=== PATIENT | female | born 1965 | race Caucasian/White ===

== ENCOUNTER 2021-06-16 16:59 | Outpatient (CLI) | payer OTHER, SELFPAY ==
--- NOTE | ~2021-06-16 | US_ITS ---
EXAMINATION: US venous doppler [facility] DATE: 06/16/2021 17:43 INDICATION: Lower limb edema. TECHNIQUE: Grayscale ultrasound images without and with compression and Doppler ultrasound images of the bilateral lower extremity veins were obtained. COMPARISON: None. FINDINGS: The visualized portions of right common femoral vein, profunda (deep) femoral vein, femoral vein, pop liteal vein, peroneal veins, posterior tibial veins, and greater saphenous vein outflow are patent. The visualized portions of left common femoral vein, profunda femoral vein, femoral vein, popliteal v ein, peroneal veins, posterior tibial veins, and greater saphenous vein outflow are patent. IMPRESSION: 1. No deep venous thrombosis. Reviewed, dictated and finalized at location A.
== END 2021-06-16 17:00 | disposition home or self-care (01) ==
LOC: ANHIMG 17:01
PROVIDERS: PCP Internal Medicine; Visit Provider Internal Medicine
DX: R60.9 Edema, unspecified (principal)
CPT/HCPCS: 93970

== ENCOUNTER → 2022-01-16 15:40 | Outpatient (CLI) | payer OTHER, SELFPAY ==
--- NOTE | ~2022-01-16 | XR_ITS ---
EXAMINATION: XR lumbar spine 2-3V DATE: 01/16/2022 16:02 INDICATION: Low back pain TECHNIQUE: Supine anteroposterior and lateral views of the lumbar spine, and cone-down lateral view o f the lumbosacral junction were obtained. COMPARISON: None. FINDINGS: Alignment is normal. Vertebral body heights are normal. Mild disc height loss at T10-T11 through L2-L 3 and mild to moderate disc height loss at L3-L4. Mild to moderate lower lumbar facet osteoarthritis. Sacrum and bilateral sacroiliac joints are normal. IMPRESSION: 1. Mild lower thoracic and mild to moderate lumbar spondylosis. Reviewed, dictated and finalized at location A. [employer]
== END ==
PROVIDERS: PCP Internal Medicine; Visit Provider Internal Medicine
DX: M54.50 Low back pain, unspecified (principal); M47.894 Other spondylosis, thoracic region; M47.896 Other spondylosis, lumbar region
CPT/HCPCS: 72100

== ENCOUNTER 2022-03-29 07:57 | Outpatient (CLI) | payer OTHER, SELFPAY ==
[2022-03-29 08:53] LABS: Anion Gap 5 mmol/L (8-16); Blood Urea Nitrogen 13 mg/dL (7-17); Calcium 9.9 mg/dL (8.4-10.2); Carbon Dioxide 30 mmol/L (22-30); Chloride 104 mmol/L (98-107); Estimated Glomerular Filt Rate > 60; Glucose 136 mg/dL (65-110); Potassium 4.1 mmol/L (3.4-5.0); Sodium 139 mmol/L (137-145)
== END 2022-03-29 07:58 | disposition home or self-care (01) ==
LOC: ANHSURGERY 08:03
PROVIDERS: PCP Internal Medicine; Visit Provider Urology
DX: Z01.818 Encounter for other preprocedural examination (principal); I10 Essential (primary) hypertension; N36.42 Intrinsic sphincter deficiency (ISD)
CPT/HCPCS: 36415; 80048; 87086; 87088

== ENCOUNTER 2022-03-31 01:08 | Day surgery (SDC) | payer OTHER, SELFPAY ==
--- NOTE | 2022-03-25 11:59 | PM.IMHP ---
H&P: HPI History of Present Illness Date/Time: 03/25/22 11:59 56 yo with SELVIN due to ISD Chief Complaint: ISD Review of Systems Review of Systems: All systems reviewed & are unremarkable except as noted in HPI and below PMFSH Past Medical History Medical History History of vaginal delivery Hypertension Migraines Surgical History Surgical History H/O total hysterectomy 2017 [place] teeth removed Family History Family History Mother Hypertension Family history of malignant neoplasm of breast in first degree relative Father Hypertension Other Carcinoma of colon Cerebrovascular accident Social History Social History Smoking status: Never smoker Alcohol intake: current Meds Home Medications and Allergies Home Medications Medication Instructions Recorded Confirmed Type amlodipine 10 mg-benazepril 40 mg 1 cap PO DAILY 03/25/21 03/25/21 History capsule Allergies Allergy/AdvReac Type Severity Reaction Status Date / Time No Known Allergies Allergy Verified 03/25/21 13:37 Exam Narrative: NAD A+O x3 normal breathing no mesh exposure Assessment and Plan Assessment and plan (1) Intrinsic sphincter deficiency (ISD): Code(s): N36.42 - Intrinsic sphincter deficiency (ISD) Status: Acute Assessment and Plan: cystoscopy/bulking agent
--- NOTE | 2022-03-28 14:27 | PC.NURSE ---
Report to the Outpatient Waiting Room, entrance under the green pavilion located off [facility], at time _0830 on date _03/31/22 . OR Time: 1030 . - You and your visitor will be asked a series of questions to screen for COVID 19 for your protection. - Only one visitor is allowed at this time. - The patient visitor is requested to leave or wait in car when not with patient. - A mask is required within the hospital. Patients may have clear liquids (water, carbonated beverages, clear teas, apple juice) until 3 hours prior to surgery with a maximum of 20 ounces. - No food from midnight until time of surgery Take the following medications with a SIP of water the morning of surgery: __TAKE YOUR MEDS AT NIGHT PER YOUR ROUTINE Medications to discontinue per physician N/A Date to take last dose___N/A Please no make-up, nail faroese, hairspray, perfume, deodorant, or body powder the day of surgery. No jewelry (including any body piercings) or valuables the day of surgery, leave them at home. Please take a shower or bath the night before, or the morning of, surgery with an antibacterial soap. Wear comfortable, loose fitting clothing. - Jewelry must be removed prior to entering the operating room. Rings and piercings that are not removed may be cut off. - The hospital will not accept responsibility for valuables. - Please leave all valuables, including medications, at home the day of surgery. If you are going home after surgery, a licensed stud driver must drive you home. - NO public transportation without another adult. - We recommend that an adult stay with you for 24 hours following discharge. - We also recommend that you do not drive, make important decision, drink alcoholic beverages, or take any drugs that were not prescribed by your health care provider for at least 24 hours after your discharge time. Follow any additional instructions given to you from your surgeon. If you or anyone in your household have experienced Covid symptoms in the past week, please notify your surgeon or the nurse liaison at the phone number below for possible testing. Telephone instructions given to HANK and asked if any additional questions and then verbalized understanding. Patient advised to call surgeon office or pre surgery nurse liaison [phone] if any additional questions.
--- NOTE | 2022-03-30 13:30 | WPDANESEPPF ---
Anes - Initial Pre Proc Eval Procedure: Operation Date: 03/31/22 09:45 Proposed Procedures p Cystoscopy, Injection Bulkamid - Dilan Pappas MD Date/Time: 03/30/22 13:30 Surgeon: Dilan Pappas MD Pre Op Diagnosis: intrinsic sphincter deficiency Patient Data Age: 56 Gender: F Height: 1.65 m Weight: 104.5 kg Allergies Allergy/AdvReac Type Severity Reaction Status Date / Time No Known Allergies Allergy Verified 03/25/21 13:37 Home Medications Medication Instructions Recorded Confirmed Type amlodipine 10 mg-benazepril 40 mg 1 cap PO DAILY 03/25/21 03/28/22 History capsule hydrochlorothiazide 12.5 mg PO DAILY 03/28/22 03/28/22 History Patient hx anesthesia problems: none Family hx anesthesia problems: none Results Review: All pre-operative results and documents have been reviewed as part of the pre-operative evaluation. [facility] Past Medical History Medical History (Updated 03/30/22 @ 13:31 by Noah Strange MD) History of vaginal delivery Hypertension Migraines Obesity Surgical History Surgical History H/O total hysterectomy 2017 [place] teeth removed Family History Family History Mother Hypertension Family history of malignant neoplasm of breast in first degree relative Father Hypertension Other Carcinoma of colon Cerebrovascular accident Social History Social History Smoking status: Never smoker Alcohol intake: current Substance use: never Substance use type: does not use Spiritual care concerns: No Anes - Eval Final PreProcedure Day of Procedure 03/30/22 13:30 Patient weight: obese Heart: regular rate and rhythm Lungs: clear to auscultation and normal air movement Airway: Mallampati scale class II Neurological: alert and oriented Last oral intake: >/= 8 hours ASA classification: III Emergent: no Anesthetic plan: proceed Anesthesia type and monitoring: general LMA Results Review: All pre-operative results and documents have been reviewed as part of the pre-operative evaluation. Informed Consent: The patient's anesthetic plan and its attendant risks and benefits were discussed with the patient/family/POA. Questions were solicited and answers provided to the satisfaction of the patient/family/POA.
--- NOTE | 2022-03-31 07:17 | WPDHPUPDATE1 ---
History and Physical Update Update Date/Time: 03/31/22 07:17 History and Physical has been reviewed, including an updated exam of the patient. There are NO changes in the patient's condition. Risks, benefits, and alternatives have been discussed and questions answered. Patient agrees to proceed with procedure.
[2022-03-31 08:32] VITALS: BP 142/89; PULSE 58; RESP 14; TEMP 36.1; O2SAT 98
[2022-03-31] MEDS: LACTATED RINGERS 1,000 ML 30 ML IV CONT (08:35)
[2022-03-31] MEDS: ceFAZolin 2 GM/D5W 50 ML 2 GM/50 ML BAG IVPB (09:50)
[2022-03-31 10:15] VITALS: BP 94/56; PULSE 53; RESP 16; O2SAT 94
--- NOTE | 2022-03-31 10:24 | P.OP_ITS ---
Procedure Note - Detailed Date of Procedure 03/31/22 Pre-op Diagnosis intrinsic sphincter deficiency Post-op Diagnosis Same Procedure Performed Cystoscopy with suburethral injection of implant material Surgeon Dilan Pappas MD Anesthesia MAC Indications This is a woman with intrinsic sphincter deficiency. She has had a urethral sling in the past. She has recurrent stress incontinence. She is here today for a bulking agent. She understands risks of bleeding, infection, lack of efficacy, need for repeat procedures, urinary retention. She agrees to proceed Description of Procedure She was correctly identified. Informed consent obtained. She was from the operating room. She was given MAC anesthesia. She was prepped and draped in a sterile fashion. She was given appropriate perioperative antibiotics. A time- out performed. She had an open urethra consistent with intrinsic sphincter deficiency. Cystoscopy revealed otherwise normal bladder. I picked out a spot the mid urethra 2 cm distal bladder neck. I injected my bulking agent circumfe rentially. There was excellent bulking effect. Her bladder was left partially full. She was awakened transferred PACU in stable condition. Estimated Blood Loss 1 Drains No Packing No Pathology None sent Complications No immediate complications Condition Stable Disposition PACU
[2022-03-31 10:45] VITALS: BP 144/82; PULSE 44; RESP 16
[2022-03-31 11:15] VITALS: BP 161/80; PULSE 50; RESP 16
== END 2022-03-31 11:30 | disposition home or self-care (01) ==
PROVIDERS: PCP Internal Medicine; Visit Provider Urology
PROC: 3E0K8GC Introduction of Other Therapeutic Substance into Genitourinary Tract, Via Natural or Artificial Opening Endoscopic (ICD-10-PCS; CPT 51715; principal; 2022-03-31 09:45)
DX: N36.42 Intrinsic sphincter deficiency (ISD) (principal); I10 Essential (primary) hypertension; E66.9 Obesity, unspecified; Z68.39 Body mass index [BMI] 39.0-39.9, adult
CPT/HCPCS: 51715; 36415; 80048; 87086; 87088; A9270; J0690; J2250; J2704; J3010; J7120; L8606

== ENCOUNTER → 2023-11-07 15:18 | Outpatient (CLI) | payer OTHER, SELFPAY ==
--- NOTE | ~2023-11-07 | US_ITS ---
US thyroid INDICATION: Thyroid calcification. TECHNIQUE: Real-time sonographic images of the thyroid gland were obtained. COMPARISON: No prior studies for comparison. FINDINGS: The right thyroid lobe measures 4.1 x 2 x 1.3 cm. The left thyroid lobe measures 4.7 x 1.8 x 1.2 cm. There is normal echotexture and echogenicity throughout the thyroid gland.. There are bila teral thyroid nodules. In the right lobe there is a hypoechoic shadowing mass measuring 3.7 x 2.2 x 1 .8 cm which appears solid, hypoechoic, wider than tall, irregular margins with macrocalcifications, T R 5. There is also a oval solid hypoechoic, wider than tall, smoothly marginated mass with punctate e chogenic foci measuring 1.4 x 0.6 x 1 cm. In the left lobe there is a solid hypoechoic wider than chloe l, smoothly marginated mass without echogenic foci measuring 1.6 x 0.9 x 1.1 cm, TR 4. Normal vascula r flow is present. IMPRESSION: 1. Multiple abnormal bilateral thyroid masses. Bilateral ultrasound-guided thyroid fine-needle aspir ation biopsies recommended. Reviewed, dictated and finalized at location L. K PLUG TESTER IMPRESSION: 1. Multiple abnormal bilateral thyroid masses. Bilateral ultrasound-guided thy roid fine-needle aspiration biopsies recommended.
== END ==
PROVIDERS: PCP Internal Medicine; Visit Provider Internal Medicine
DX: E04.2 Nontoxic multinodular goiter (principal)
CPT/HCPCS: 76536